=== PATIENT | female | born 1985 | race Caucasian/White ===

== ENCOUNTER 2020-07-24 11:49 | Emergency (ER) | payer BC, SELFPAY ==
[2020-07-24 12:20] VITALS: BP 125/76; PULSE 75; RESP 18; TEMP 36.6; O2SAT 98; BMI 23.6
--- NOTE | 2020-07-24 12:51 | HMH.EDUTC ---
[facility] [place] Clinical Impression: Exposure to COVID-19 virus Disposition: Home, Self-Care Condition on Discharge: Good Instructions: Preventing the Spread of Coronavirus Discharge Instructions Additional Instructions: Drink plenty of fluids. Take tylenol for pain or fever. Return if you begin to have difficulty breathing. Follow up with your regular doctor. GO TO THE ER FOR ANY WORSENING SYMPTOMS Referrals: Dany Schaefer MD [Primary Care Provider] - Time of Disposition: 12:56 Medical Decision Making - Medical Records Medical records reviewed: No: I reviewed the patient's medical records. - Manpreet Inquiry Pt receiving controlled substance: No Vital Signs: 07/24/20 12:20 07/24/20 12:58 Temperature 97.8 F 97.8 F Temperature Source Oral Pulse Rate 75 Pulse Rate [Right Brachial] 75 Respiratory Rate 18 18 Blood Pressure 125/76 Blood Pressure [Right Arm] 125/76 Blood Pressure Mean [Right Arm] 92 Blood Pressure Source [Right Arm] Automatic Cuff Blood Pressure Position [Right Arm] Sitting 02 Sat by Pulse Oximetry 98 Oxygen Delivery Method Room Air Orders (Tests/Meds): ORDERS Category Date Time Status Covid-19 Nasal PCR Sendout Stat Lab 07/24/20 12:30 Received [facility] [place] HPI - General Stated complaint: exposure to covid Time Seen by Provider: 07/24/20 12:51 Mode of Arrival: Ambulatory Source of Information: Patient Limitations: No Limitations Description of Symptoms (Recalled from Triage Doc. by RN): PATIENT REQUESTING COVID TEST D/T EXPOSURE; DENIES SYMPTOMS HEENT Symptoms (Recalled from RN notes): No Resp Symptoms (Recalled from RN notes): No Skin Symptoms (Recalled from RN notes): No MS Symptoms (Recalled from RN notes): No Functional Status (Recalled from RN notes): WNL - History of Present Illness Provider Complaint: Both her mother and father have covid at this time. She was around them before they showed any symptoms. She denies any symptoms herself so far. - Related Data Previous Rx's Medication Instructions Recorded cefdinir 300 mg capsule 300 mg PO BID 10 Days #20 cap 11/25/18 Allergies Allergy/AdvReac Type Severity Reaction Status Date / Time No Known Allergies Allergy Unverified 11/25/18 13:38 - Worker's Comp Is this a Worker's Comp case?: No [facility] History - Hepatitis A Screen Drug use history?: No High risk sexual behaviors?: No History of sexually transmitted infection?: No Currently employed?: No Childcare worker?: No Do you have indoor plumbing?: Yes Do you have electricity?: Yes Attestation statement:: This patient has been screened for Hepatitis A risk factors. I have reviewed the patient's past medical history: Yes Other Surgeries: Yes: Other Comment: Bypass surgery - Social History Smoking Status: Never smoker Alcohol Intake: never Substance Use Type: denies use Occupational Status: other Housing: house Household Members: family Family Hx:: No significant family history ROS Obtained: Yes All systems reviewed & no additional complaints - Constitutional Constitutional: Reports system reviewed and no additional complaints, except as docu - Eyes Eyes: Reports system reviewed and no additional complaints, except as docu - ENT Ears, Nose, Mouth, and Throat: Reports system reviewed and no additional complaints, except as docu - Cardiovascular Cardiovascular: Reports system reviewed and no additional complaints, except as docu - Respiratory Respiratory: Yes system reviewed and no additional complaints, except as docu - Gastrointestinal Gastrointestingal: Reports: system reviewed and no additional complaints, except as docu Physical Exam - General General appearance: alert, in no apparent distress - Head Head exam: atraumatic, normocephalic, normal inspection - Eye Eye exam: Present: normal appearance, PERRL, EOMI - ENT ENT exam: Present: normal exam, normal oropharynx, mucous membranes moist
[2020-07-24 12:58] VITALS: BP 125/76; PULSE 75; RESP 18; TEMP 36.6; O2SAT 98
[2020-07-26 09:33] LABS: Covid-19 Nasal PCR Sendout UK Detected
--- NOTE | 2020-07-26 10:08 | PC.NURSE ---
Patient notified of COVID results. Educated on quarantine.
== END 2020-07-24 13:00 | disposition home or self-care (01) ==
PROVIDERS: Emergency Provider Nurse Practitioner Family; PCP Family Medicine
DX: U07.1 COVID-19 (principal)
CPT/HCPCS: 99201; U0003

== ENCOUNTER 2020-12-06 14:21 | Emergency (ER) | payer BC, SELFPAY ==
[2020-12-06 14:29] VITALS: BP 000/00; BP 108/56; PULSE 71; RESP 16; TEMP 36.8; O2SAT 100; BMI 22.8
[2020-12-06 14:40] LABS: Apearance,Urine Clear (Clear); Color,Urine Yellow (Yellow)
[2020-12-06 14:41] LABS: Bilirubin,Urine Negative (Negative); Blood, Urine 3+ (Negative); Glucose,Urine (UA) Negative (Negative); Ketones,Urine Negative (Negative); PH,Urine 5.5 (5.0-8.5); Protein,Urine Trace (Negative); Specific Gravity, Urine <= 1.005 (1.005-1.030); UTC Leukocyte Esterase,Urine 2+ (Negative); UTC Nitrate,Urine Negative (Negative); Urobilinogen,Urine 0.2 EU/dl (0.2)
--- NOTE | 2020-12-06 14:41 | HMH.EDUTC ---
[facility] [place] Clinical Impression: UTI (urinary tract infection) Qualifiers: Urinary tract infection type: acute cystitis Hematuria presence: without hematuria Qualified Code(s): N30.00 - Acute cystitis without hematuria Disposition: Home, Self-Care Condition on Discharge: Good Instructions: DI for Urinary Tract Infection (UTI) Additional Instructions: Your urine culture should be back Monday afternoon/Monday morning. Dr Schaefer' office should receive that to ensure you are on the right antibiotic. Prescriptions: Ciprofloxacin HCl [Cipro 500mg Tab] 500 mg PO BID 5 Days #10 tab Transmission Status: Pending to [facility] Phenazopyridine HCl [Pyridium 200mg Tablet] 200 mg PO Q8HP PRN 2 Days #6 tab PRN Reason: Dysuria Transmission Status: Pending to [id number] Referrals: Dany Schaefer MD [Primary Care Provider] - Time of Disposition: 14:44 Medical Decision Making - Manpreet Inquiry Pt receiving controlled substance: No Vital Signs: 12/06/20 14:29 Temperature 98.3 F Temperature Source Oral Pulse Rate [Left] 71 Respiratory Rate 16 Blood Pressure [Right Arm] 108/56 L Blood Pressure [Right Radial Artery] 000/00 L Blood Pressure Mean [Right Arm] 73 Blood Pressure Source [Right Arm] Automatic Cuff Blood Pressure Position [Right Arm] Sitting 02 Sat by Pulse Oximetry 100 Oxygen Delivery Method Room Air - Lab Data Lab results reviewed: Yes: I reviewed the patient's lab results. Orders (Tests/Meds): ORDERS Category Date Time Status Urine Culture Stat Micro 12/06/20 14:38 Ordered [facility] [place] - General Stated complaint: Possible UTI infection Time Seen by Provider: 12/06/20 14:41 Mode of Arrival: Ambulatory Source of Information: Patient Limitations: No Limitations Description of Symptoms (Recalled from Triage Doc. by RN): UTI HEENT Symptoms (Recalled from RN notes): No Resp Symptoms (Recalled from RN notes): No Skin Symptoms (Recalled from RN notes): No MS Symptoms (Recalled from RN notes): No Functional Status (Recalled from RN notes): wnl - History of Present Illness Provider Complaint: Urinary pressure and frequency since yesterday. No fever. No vomiting or diarrhea. Onset (ago): day(s) (1) Relieving factors: none Exacerbating factors: none Associated symptoms: denies other symptoms Treatments prior to arrival: none - Related Data Previous Rx's Medication Instructions Recorded cefdinir 300 mg capsule 300 mg PO BID 10 Days #20 cap 11/25/18 Ciprofloxacin HCl [Cipro 500mg 500 mg PO BID 5 Days #10 tab 12/06/20 Tab] Phenazopyridine HCl [Pyridium 200 mg PO Q8HP PRN 2 Days #6 tab 12/06/20 200mg Tablet] Allergies Allergy/AdvReac Type Severity Reaction Status Date / Time No Known Allergies Allergy Unverified 11/25/18 13:38 - Worker's Comp Is this a Worker's Comp case?: No [facility] History - Hepatitis A Screen Drug use history?: No High risk sexual behaviors?: No History of sexually transmitted infection?: No Currently employed?: No Childcare worker?: No Do you have indoor plumbing?: Yes Do you have electricity?: Yes Attestation statement:: This patient has been screened for Hepatitis A risk factors. I have reviewed the patient's past medical history: Yes Other Surgeries: Yes: Other Comment: Bypass surgery - Social History Smoking Status: Never smoker Alcohol Intake: never Substance Use Type: denies use Occupational Status: other Housing: house Household Members: family Family Hx:: No significant family history ROS Obtained: Yes All systems reviewed & no additional complaints - Genitourinary Female Genitourinary: Reports dysuria, Reports urinary frequency, Reports urinary urgency Physical Exam - General General appearance: alert, in no apparent distress - Head Head exam: normocephalic - Eye Eye exam: Present: PERRL - ENT ENT exam: Present: normal oropharynx, TM's normal bilaterally - Chest Chest
[2020-12-06 14:45] VITALS: BP 108/56; PULSE 71; RESP 16; TEMP 36.8; O2SAT 100
== END 2020-12-06 14:46 | disposition home or self-care (01) ==
PROVIDERS: Emergency Provider Physician Assistant; PCP Family Medicine
DX: N30.00 Acute cystitis without hematuria (principal)
CPT/HCPCS: 81003; 87086; 87088; 87186; 99202; G0463

== ENCOUNTER 2021-01-18 11:31 | Emergency (ER) | payer BC, SELFPAY ==
[2021-01-18 11:54] VITALS: BP 113/50; PULSE 86; RESP 17; TEMP 37; O2SAT 98; BMI 22.3
--- NOTE | 2021-01-18 11:59 | HMH.EDUTC ---
[facility] [place] Disposition Clinical Impression: Cough Disposition: Home, Self-Care Condition on Discharge: Good Instructions: Cough, DI for Allergic Rhinitis, Fluticasone Nasal [place] Additional Instructions: *Monitor Temp, Over the counter Motrin or Tylenol as directed/as needed Tylenol every 4 hours and Motrin every 6 hours (as long as your family doctor has told you that you can take it) for fever or pain. and straight to ER if unable to lower temp less than 101.0 after medication given *Warm salt water gargles may help to soothe the throat *Throat Lozenges *Warm fluids like tea with honey may help to soothe the throat *Sleep elevated *Humidifier/Vaporizer *Flonase 1-2 sprays in each nostril daily but be aware that it may take 2-3 days before you notice improvement *Bromfed may cause drowsiness. Know how it effects you (your child) before driving, caring for small child, or sending your child to school. Not other antihistamines/allergy medications while taking bromfed Follow up IMMEDIATELY for new or worsening symptoms or no Noticeable improvement over the next 48-72 hours. 911 for difficulty breathing or swallowing Prescriptions: Brompheniramine/Pseudoephed/Dm [Bromfed Dm Cough Syrup] 5 - 10 ml PO Q46H PRN #250 ml PRN Reason: Cough Transmission Status: Pending to [facility] Fluticasone Propionate [Flonase 50mcg nasal spray 16gm] 1 spr NS DAILY #1 bottle Transmission Status: Pending to [facility] Referrals: Dany Schaefer MD [Primary Care Provider] - As needed Time of Disposition: 12:03 Medical Decision Making - Manpreet Inquiry Pt receiving controlled substance: No Manpreet was queried for this patient: No Vital Signs: 01/18/21 11:54 Temperature 98.6 F Temperature Source Oral Pulse Rate [Right] 86 Respiratory Rate 17 Blood Pressure [Right Arm] 113/50 L Blood Pressure Mean [Right Arm] 71 Blood Pressure Source [Right Arm] Automatic Cuff Blood Pressure Position [Right Arm] Sitting 02 Sat by Pulse Oximetry 98 [facility] [place] HPI - General Stated complaint: cough, drainage Time Seen by Provider: 01/18/21 11:59 Mode of Arrival: Ambulatory Source of Information: Patient Limitations: No Limitations Description of Symptoms (Recalled from Triage Doc. by RN): pt c/o cough and chest congestion x2 days. HEENT Symptoms (Recalled from RN notes): No Resp Symptoms (Recalled from RN notes): Yes (cough and chest congestion) Skin Symptoms (Recalled from RN notes): No MS Symptoms (Recalled from RN notes): No Functional Status (Recalled from RN notes): na - History of Present Illness Provider Complaint: Patient states she has been having some sinus drainage in the back of her throat and cough for several days States that it has continued to get worse and keeping her up at night so she came in to see if she could get something - Related Data Previous Rx's Medication Instructions Recorded cefdinir 300 mg capsule 300 mg PO BID 10 Days #20 cap 11/25/18 Ciprofloxacin HCl [Cipro 500mg 500 mg PO BID 5 Days #10 tab 12/06/20 Tab] Phenazopyridine HCl [Pyridium 200 mg PO Q8HP PRN 2 Days #6 tab 12/06/20 200mg Tablet] Brompheniramine/Pseudoephed/Dm 5 - 10 ml PO Q46H PRN #250 ml 01/18/21 [Bromfed Dm Cough Syrup] Fluticasone Propionate [Flonase 1 spr NS DAILY #1 bottle 01/18/21 50mcg nasal spray 16gm] Allergies Allergy/AdvReac Type Severity Reaction Status Date / Time No Known Allergies Allergy Unverified 11/25/18 13:38 - Worker's Comp Is this a Worker's Comp case?: No [facility] History - Hepatitis A Screen Drug use history?: No High risk sexual behaviors?: No History of sexually transmitted infection?: No Currently employed?: No Childcare worker?: No Do you have indoor plumbing?: Yes Do you have electricity?: Yes Attestation statement:: This patient has been screened for Hepatitis A risk factors. I have reviewed the patient's past medical history: Yes Other Surgeries: Yes: Other C
[2021-01-18 12:12] VITALS: BP 113/60; PULSE 85; RESP 14; TEMP 36.6
== END 2021-01-18 12:25 | disposition home or self-care (01) ==
PROVIDERS: Emergency Provider Nurse Practitioner; PCP Family Medicine
DX: R05 Cough (principal); R09.81 Nasal congestion
CPT/HCPCS: 99202; G0463

== ENCOUNTER 2021-03-25 16:51 | Outpatient (CLI) | payer BC, SELFPAY ==
[2021-03-25 19:05] LABS: Amphetamine/Metha Screen,Urine Negative ng/ml (<1000); Barbiturates Screen,Urine Negative ng/ml (<200)
[2021-03-25 19:06] LABS: Benzodiazepines Screen,Urine Negative ng/ml (<200)
[2021-03-25 19:07] LABS: Cannabinoid Screen,Urine Negative ng/ml (<50); Cocaine Screen,Urine Negative ng/ml (<300)
[2021-03-25 19:08] LABS: Methadone Screen,Urine Negative ng/ml (<300); Opiate Screen,Urine Negative ng/ml (<300)
[2021-03-25 19:09] LABS: Phencyclidine Screen,Urine Negative ng/ml (<25)
== END 2021-03-25 20:39 | disposition home or self-care (01) ==
PROVIDERS: Visit Provider Nurse Practitioner
DX: Z02.1 Encounter for pre-employment examination (principal)
CPT/HCPCS: 80305

== ENCOUNTER → 2021-04-21 15:58 | Outpatient (CLI) | payer BC, SELFPAY | PROVIDERS: Visit Provider Physician Assistant Surgical | DX: Z01.812 Encounter for preprocedural laboratory examination (principal); Z20.822 Contact with and (suspected) exposure to COVID-19; Z13.810 Encounter for screening for upper gastrointestinal disorder | CPT/HCPCS: U0003 ==

== ENCOUNTER 2021-06-07 15:02 | Outpatient (CLI) | payer BC, SELFPAY ==
[2021-06-07 15:35] VITALS: BP 120/71; PULSE 70; RESP 18; O2SAT 100
[2021-06-07 16:10] VITALS: BP 122/75; PULSE 72; RESP 18
== END 2021-06-07 16:10 | disposition home or self-care (01) ==
LOC: INF 15:04
PROVIDERS: PCP Family Medicine; Visit Provider Nurse Practitioner Family
DX: D64.9 Anemia, unspecified (principal); D50.8 Other iron deficiency anemias
CPT/HCPCS: 96365; J1439

== ENCOUNTER 2021-06-14 15:11 | Outpatient (CLI) | payer BC, SELFPAY ==
[2021-06-14 15:34] VITALS: BP 104/66; PULSE 69; RESP 16; TEMP 36.7; O2SAT 100
[2021-06-14 16:25] VITALS: BP 108/68; PULSE 72; RESP 18; TEMP 36.6; O2SAT 100
== END 2021-06-14 16:32 | disposition home or self-care (01) ==
LOC: INF 15:11
PROVIDERS: PCP Nurse Practitioner Family; Visit Provider Nurse Practitioner Family
DX: D50.9 Iron deficiency anemia, unspecified (principal)
CPT/HCPCS: 96365; J1439

== ENCOUNTER 2022-08-21 11:21 | Emergency (ER) | payer BC, SELFPAY ==
[2022-08-21 11:40] VITALS: BP 119/54; PULSE 63; RESP 20; TEMP 36.7; O2SAT 100; BMI 25.9
[2022-08-21 12:09] LABS: Apearance,Urine Clear (Clear); Bilirubin,Urine 1+ (Negative); Blood, Urine Negative (Negative); Color,Urine Yellow (Yellow); Glucose,Urine (UA) Negative (Negative); Ketones,Urine Negative (Negative); Protein,Urine 1+ (Negative); UTC Leukocyte Esterase,Urine Negative (Negative); UTC Nitrate,Urine Negative (Negative); Urobilinogen,Urine 0.2 EU/dl (0.2)
--- NOTE | 2022-08-21 12:20 | EXP.UTC ---
Discharge Plan Disposition Patient Disposition: Home, Self-Care Condition: Good Prescriptions Prescriptions: New cyclobenzaprine 10 mg tablet 10 mg PO TID PRN (Reason: muscle spasm) Qty: 15 0RF etodolac 200 mg capsule 200 mg PO Q8H PRN (Reason: pain) Qty: 20 0RF No Action fluticasone propionate 120 SPR/BOT bottle 1 spr NS DAILY PRN (Reason: allergy symptoms) Rx Instructions: each nostril daily multivitamin 1 EACH tablet 1 each PO DAILY calcium carbonate 500 MG tablet 1,000 mg PO DAILY cholecalciferol (vitamin D3) 1,000 UNIT capsule 1,000 unit PO TID cyanocobalamin (vitamin B-12) 1,000 MCG tablet 1,000 mcg PO TID Referrals Follow up/Referrals: Sandrine Blue APRN [Primary Care Provider] - See instructions Stand Alone Forms Stand Alone Forms: Work/School Release Instructions Patient Instructions: Cyclobenzaprine, DI for Muscle Spasm, Etodolac Discharge ED Provider: Vee Almeida [facility] General Stated complaint: Lower back pain Mode of Arrival: Ambulatory Source of Information: Patient Limitations: No Limitations Time Seen by Provider: 08/21/22 12:21 Description of Symptoms (Recalled from Triage Doc. by RN): PATIENT C/O LEFT MID BACK PAIN THAT STARTED YESTERDAY AND INTERMITTEN RLQ PAIN THAT STARTED THIS MORNING. NO KNOWN INJURY. PATIENT DENIES PROBLEMS URINATING, NAUSEA, VOMITING, DIARRHEA HEENT Symptoms (Recalled from RN notes): No Resp Symptoms (Recalled from RN notes): No Skin Symptoms (Recalled from RN notes): No MS Symptoms (Recalled from RN notes): No Functional Status (Recalled from RN notes): WNL History of Present Illness Provider Complaint: Patient states that she cleaned the amish on Monday and not sure if she may have pulled something in her left mid back but she started having spasm like pain in her left mid back yesterday that was worse with certain movements and certain ways she would try to lay States that when she woke up this morning she had a little pain in her right lower quad but didnt last long and no longer having pain Denies problems with urination, denies N/V/D States that pain worse with movement felt like a pulled muscle but not sure Related Data Home Medications Medication Instructions Recorded Confirmed calcium carbonate 500 mg calcium 1,000 mg PO DAILY Supplement 06/14/21 06/14/21 (1,250 mg) tablet cholecalciferol (vitamin D3) 25 1,000 unit PO TID Supplement 06/14/21 06/14/21 mcg (1,000 unit) capsule cyanocobalamin (vitamin B-12) 1,000 mcg PO TID Supplement 06/14/21 06/14/21 1,000 mcg tablet fluticasone propionate 50 1 spr NS DAILY PRN allergy symptoms 06/14/21 06/14/21 mcg/actuation nasal spray,suspension multivitamin 1 each PO DAILY Supplement 06/14/21 06/14/21 Previous Rx's Medication Instructions Recorded cyclobenzaprine 10 mg tablet 10 mg PO TID PRN muscle spasm #15 08/21/22 tabs etodolac 200 mg capsule 200 mg PO Q8H PRN pain #20 caps 08/21/22 Allergies Allergy/AdvReac Type Severity Reaction Status Date / Time No Known Allergies Allergy Verified 06/14/21 15:53 Worker's Comp Is this a Worker's Comp case?: No [facility] Disclaimer: The information contained in this section may have been updated after the patient was seen, as this information can be updated by other users. Medical History (Updated 08/21/22 @ 11:58 by Michelle Armstrong RN) History of anemia Urinary tract infection Surgical History (Updated 08/21/22 @ 11:58 by Michelle Armstrong RN) History of cholecystectomy History of tubal ligation Social History (Updated 08/21/22 @ 11:58 by Michelle Armstrong RN) Smoking Status: Never smoker second hand exposure: No alcohol intake: never substance use type: denies use current occupational status: employed Travel in the last 8 weeks: None household members: spouse and children housing: house ROS Obtained: Yes All systems reviewed & no additional
[2022-08-21 12:40] VITALS: BP 119/54; PULSE 63; RESP 20; TEMP 36.7; O2SAT 100
== END 2022-08-21 12:44 | disposition home or self-care (01) ==
PROVIDERS: Emergency Provider Nurse Practitioner; PCP Nurse Practitioner Family
DX: M54.50 Low back pain, unspecified (principal)
CPT/HCPCS: 81003; 99212; 99213; G0463

== ENCOUNTER 2022-12-12 16:03 | Emergency (ER) | payer BC, SELFPAY ==
--- NOTE | 2022-12-12 16:25 | XR_ITS ---
PROCEDURE INFORMATION: Exam: XR Left Tibia and Fibula Exam date and time: 12/12/2022 4:29 PM Age: 37 years old Clinical indication: Pain; Lower leg; Left TECHNIQUE: Imaging protocol: Radiologic exam of the left tibia and fibula. Views: 2 views. COMPARISON: No relevant prior studies available. FINDINGS: Bones/joints: No visible fracture or dislocation. Soft tissues: Normal. IMPRESSION: No visible fracture or dislocation.
--- NOTE | 2022-12-12 16:28 | EXP.UTC ---
Discharge Plan Disposition Patient Disposition: Home, Self-Care Condition: Good Prescriptions Prescriptions: New ibuprofen [ibuprofen] 600 mg tablet 600 mg PO Q6HP PRN (Reason: Mild Pain) Qty: 30 0RF No Action cyclobenzaprine 10 mg tablet 10 mg PO TID PRN (Reason: muscle spasm) Qty: 15 0RF etodolac 200 mg capsule 200 mg PO Q8H PRN (Reason: pain) Qty: 20 0RF fluticasone propionate 120 SPR/BOT bottle 1 spr intranasal DAILY PRN (Reason: allergy symptoms) Rx Instructions: each nostril daily multivitamin 1 EACH tablet 1 each PO DAILY calcium carbonate 500 MG tablet 1,000 mg PO DAILY cholecalciferol (vitamin D3) 1,000 UNIT capsule 1,000 unit PO TID cyanocobalamin (vitamin B-12) 1,000 MCG tablet 1,000 mcg PO TID Referrals Follow up/Referrals: Toi Preciado, [Staff Physician] - See instructions Sandrine Blue APRN [Primary Care Provider] - See instructions Activity Restrictions/Add. Instructions Additional Instructions/Restrictions: Rest the extremity, Elevate the extremity as tolerated while you are resting. Take ibuprofen for pain. I sent in a prescription to your pharmacy. Follow up with Dr. Preciado (orthopedics). I put in a referral but you need to call his office and schedule an appointment. Follow up with your regular doctor. GO TO THE ER FOR ANY WORSENING SYMPTOMS Use the crutches and boot to rest your leg and to try to allow this injury to heal. 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 She felt something pop in the back of her left lower leg and immediately began having pain in her upper calf area. She denies any activity that should have caused her to have an injury. 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 She is having left calf pain that is worse with walking and flexing her foot. She denies any personal or family history of dvt. She denies any shortness of breath, chest pain, cough or other chest or respiratory symptoms. She denies any redness, swelling or warmth of her calf. She denies having any pain in her calf before she felt the pop . Related Data Home Medications Medication Instructions Recorded Confirmed calcium carbonate 500 mg calcium 1,000 mg PO DAILY Supplement 06/14/21 12/13/22 (1,250 mg) tablet cholecalciferol (vitamin D3) 25 1,000 unit PO TID Supplement 06/14/21 12/13/22 mcg (1,000 unit) capsule cyanocobalamin (vitamin B-12) 1,000 mcg PO TID Supplement 06/14/21 12/13/22 1,000 mcg tablet fluticasone propionate 50 1 spr intranasal DAILY PRN allergy 06/14/21 12/13/22 mcg/actuation nasal symptoms spray,suspension multivitamin 1 each PO DAILY Supplement 06/14/21 12/13/22 Previous Rx's Medication Instructions Recorded cyclobenzaprine 10 mg tablet 10 mg PO TID PRN muscle spasm #15 08/21/22 tabs etodolac 200 mg capsule 200 mg PO Q8H PRN pain #20 caps 08/21/22 ibuprofen 600 mg tablet 600 mg PO Q6HP PRN Mild Pain #30 12/12/22 tabs Allergies Allergy/AdvReac Type Severity Reaction Status Date / Time No Known Allergies Allergy Verified 12/13/22 13:53 [facility] Disclaimer: The information contained in this section may have been updated after the patient was seen, as this information can be updated by other users. Medical History History of anemia Urinary tract infection Surgical History History of cholecystectomy History of tubal ligation Social History (Reviewed 12/13/22 @ 18
[2022-12-12 16:52] VITALS: BP 133/66; PULSE 68; RESP 16; TEMP 36.6; O2SAT 99; BMI 25.6
[2022-12-12 18:05] VITALS: BP 133/66; PULSE 68; RESP 18; TEMP 36.6; O2SAT 99
== END 2022-12-12 18:06 | disposition home or self-care (01) ==
PROVIDERS: Emergency Provider Nurse Practitioner Family; PCP Nurse Practitioner Family
DX: S86.112A Strain of other muscle(s) and tendon(s) of posterior muscle group at lower leg level, left leg, initial encounter (principal); X58.XXXA Exposure to other specified factors, initial encounter; Y93.01 Activity, walking, marching and hiking
CPT/HCPCS: 73590; 99212; 99214; G0463

== ENCOUNTER → 2023-01-10 13:46 | Outpatient (CLI) | payer BC, SELFPAY ==
--- NOTE | 2023-01-10 13:46 | MR_ITS ---
FINAL REPORT CLINICAL HISTORY: Rule out gastro tear felt pop x 2-3 weeks ago unable to bear full weight on leg tender to the touch COMPARISON: None FINDINGS: Multiplanar MR imaging was performed of the left lower leg. There is extensive abnormal edema seen at the inferior margin of the medial head of the gastrocnemius. There is fluid along the fascial plane between the medial head of the gastrocnemius and the soleus. Findings are well identified on images 17-20 of series 22 and on coronal images 18-13 of series 26. There is no evidence of marrow edema. No osseous abnormality. IMPRESSION: Partial tear inferior medial head of the left gastrocnemius. Reviewed, Interpreted and Dictated by Nigel Lopez MD Transcribed by Joanne Mackey Authenticated and [facility]
== END ==
LOC: RAD 13:46
PROVIDERS: PCP Nurse Practitioner Family; Visit Provider Orthopaedic Surgery
DX: S86.112A Strain of other muscle(s) and tendon(s) of posterior muscle group at lower leg level, left leg, initial encounter (principal); M79.662 Pain in left lower leg
CPT/HCPCS: 73718

== ENCOUNTER 2023-09-18 15:26 | Outpatient (CLI) | payer BC, SELFPAY ==
[2023-09-18] MEDS: ferumoxytoL 510 MG in 0.9 % SODIUM CHLORIDE 50 ML 268 MG IV (15:45)
[2023-09-18 15:49] VITALS: BP 116/59; PULSE 72; RESP 18; O2SAT 100
[2023-09-18 16:11] VITALS: BP 116/59; PULSE 72; RESP 18; O2SAT 100
[2023-09-18] MEDS: SODIUM CHLORIDE 0.9% 50ML BAG 50 ML IV (16:14)
== END 2023-09-18 16:10 | disposition home or self-care (01) ==
LOC: INF 15:27
PROVIDERS: PCP Nurse Practitioner Family; Visit Provider Nurse Practitioner Family
DX: D50.9 Iron deficiency anemia, unspecified (principal)
CPT/HCPCS: 96365; Q0138

== ENCOUNTER 2023-09-23 15:22 | Emergency (ER) | payer BC, SELFPAY ==
--- NOTE | 2023-09-23 15:38 | EXP.UTC ---
Discharge Plan Disposition Patient Disposition: Home, Self-Care Condition: Good Prescriptions Prescriptions: New azithromycin [Zithromax] 250 mg tablet 250 mg PO UD DOSE PK Qty: 6 0RF Rx Instructions: Take two (2) tablets today, then one (1) tablet days #2 thru #5 methylprednisolone 4 mg Tablets,Dose Pack 4 mg PO DIRECTED 6 Days Qty: 21 0RF Rx Instructions: Take 1 pack as directed for 6 days [id number] [Bromfed DM] 2-30-10 mg/5 mL Syrup 5 ml PO Q6H PRN (Reason: Cough) Qty: 240 0RF Referrals Follow up/Referrals: Sandrine Blue APRN [Primary Care Provider] - See instructions Activity Restrictions/Add. Instructions Additional Instructions/Restrictions: Drink plenty of fluids. Take tylenol or ibuprofen for pain or fever. Take the medications as directed. Follow up with your regular doctor. GO TO THE ER FOR ANY WORSENING SYMPTOMS Clinical Impressions Clinical Impression: Sinusitis Instructions Patient Instructions: DI for Sinusitis, Sinusitis Discharge ED Provider: Aristides Lara [facility] General Stated complaint: poss sinus inf Time Seen by Provider: 09/23/23 15:38 History of Present Illness Provider Complaint: She states that she has had sinus congestion, scratchy sore throat, and ear pain. Related Data Previous Rx's Medication Instructions Recorded azithromycin 250 mg tablet 250 mg PO UD DOSE PK #6 tabs 09/23/23 (Zithromax) [id number] 5 ml PO Q6H PRN Cough #240 mL 09/23/23 2 mg-30 mg-10 mg/5 mL oral syrup (Bromfed DM) methylprednisolone 4 mg tablets in 4 mg PO DIRECTED 6 days #21 tabs 09/23/23 a dose pack Allergies Allergy/AdvReac Type Severity Reaction Status Date / Time No Known Allergies Allergy Verified 01/17/23 14:29 [facility] Disclaimer: The information contained in this section may have been updated after the patient was seen, as this information can be updated by other users. Medical History History of anemia Urinary tract infection Surgical History History of cholecystectomy History of tubal ligation Social History Smoking Status: Never smoker second hand exposure: No alcohol intake: never substance use type: denies use current occupational status: employed Travel in the last 8 weeks: None household members: spouse and children housing: house ROS Obtained: Yes All systems reviewed & no additional complaints except as documented Constitutional Constitutional: Reports poor appetite Eyes Eyes: Reports system reviewed and no additional complaints, except as documented ENT Ears, Nose, Mouth, and Throat: Reports as per HPI Cardiovascular Cardiovascular: Reports system reviewed and no additional complaints, except as documented and Denies chest pain Respiratory Respiratory: Denies shortness of breath, Denies chest congestion, Reports cough, Denies stridor and Denies wheezing Gastrointestinal Gastrointestingal: Reports system reviewed and no additional complaints, except as documented; Denies abdominal pain, diarrhea or vomiting Musculoskeletal Musculoskeletal: Reports system reviewed and no additional complaints, except as documented and Denies arthralgias Integumentary/Breasts Skin/Breast: Reports system reviewed and no additional complaints, except as documented and Denies rash Neurologic Neurologic: Denies paresthesias Allergic/Immunologic Allergic/Immunologic: Denies wheezing Physical Exam General General appearance: alert and in no apparent distress Eye Eye exam: Present normal appearance, PERRL and EOMI ENT ENT exam: Present mucous membranes moist and normal external ear exam Expanded ENT Exam External ear exam: Present normal external inspection TM/Canal exam: Bilateral TM: erythema and bulging Nose exam: Absent sinus tenderness Nasal speculum exam: Bilateral: normal Mouth exam: Present normal external inspection; Absent drooling Teeth exam: Present normal inspection Throat exam: Present tonsillar erythema and tonsillomegaly Neck Neck exam: Present normal inspection, full ROM and trachea midline; Absent tenderness, lymphadenopathy or thyromegaly Chest Chest inspection: Present normal inspection and symmetric chest wall rise; Absent tenderness or rash Respiratory Respiratory exam: Present normal lung sounds bilaterally; Absent respiratory distress, wheezes, stridor or accessory muscle use Cardiovascular Cardiovascular exam: Present regular rate, normal rhythm and normal heart sounds Abdominal Exam Abdominal exam: Present soft; Absent distention, tenderness, guarding, rebound or rigidity Extremities Exam Extremities exam: Present normal inspection, full ROM and normal capillary refill; Absent tenderness or calf tenderness Back Exam Back exam: Present normal inspection and full ROM; Absent tenderness Neurological Exam Neurological exam: Present alert and oriented X3 Psychiatric Psychiatric exam: Present normal affect and normal mood Skin Skin exam: Present warm, dry, intact and normal color Lymphatic Lymphatic Findings: no adenopathy Medical Decision Making Medical Records Medical records reviewed: No I reviewed the patient's medical records. Manpreet Inquiry Pt receiving controlled substance: No
[2023-09-23 15:40] VITALS: BP 107/56; PULSE 81; RESP 19; TEMP 36.6; O2SAT 99; BMI 25.5
[2023-09-23 15:59] VITALS: BP 107/56; PULSE 81; RESP 19; TEMP 36.6; O2SAT 99
== END 2023-09-23 16:33 | disposition home or self-care (01) ==
PROVIDERS: Emergency Provider Nurse Practitioner Family; PCP Nurse Practitioner Family
DX: J01.90 Acute sinusitis, unspecified (principal); R09.81 Nasal congestion; R07.0 Pain in throat; H92.03 Otalgia, bilateral; R05.9 Cough, unspecified
CPT/HCPCS: 99212; 99214; G0463

== ENCOUNTER 2023-09-25 15:27 | Outpatient (CLI) | payer BC, SELFPAY ==
[2023-09-25 15:54] VITALS: BP 113/61; PULSE 75; RESP 16; TEMP 37; O2SAT 98
[2023-09-25] MEDS: ferumoxytoL 510 MG in 0.9 % SODIUM CHLORIDE 50 ML 268 MG IV (16:02)
[2023-09-25] MEDS: 0.9 % SODIUM CHLORIDE 50 ML 100 ML IV (16:02)
[2023-09-25 16:18] VITALS: BP 126/78; PULSE 83; RESP 17; O2SAT 100
== END 2023-09-25 16:19 | disposition home or self-care (01) ==
LOC: INF 15:28
PROVIDERS: PCP Nurse Practitioner Family; Visit Provider Nurse Practitioner Family
DX: D50.9 Iron deficiency anemia, unspecified (principal)
CPT/HCPCS: 96374; Q0138